=== PATIENT | female | born 1990 | race Caucasian/White ===

== ENCOUNTER 2017-01-03 19:48 | Emergency (ER) | payer MEDICAID ==
[2017-01-03 19:56] VITALS: BP 130/85
== END 2017-01-03 20:25 | disposition home or self-care (01) ==
LOC: ED 19:48
DX: O23.41 Unspecified infection of urinary tract in pregnancy, first trimester (principal); Z3A.01 Less than 8 weeks gestation of pregnancy

== ENCOUNTER 2017-03-01 17:20 | Emergency (ER) | payer MEDICAID ==
[~2017-03-01] VITALS: Ht 167.6 cm; Wt 95.3 kg
[2017-03-01 19:14] VITALS: BP 146/87
== END 2017-03-01 19:14 | disposition home or self-care (01) ==
LOC: ED 17:20
DX: O26.891 Other specified pregnancy related conditions, first trimester (principal); M72.2 Plantar fascial fibromatosis; O23.41 Unspecified infection of urinary tract in pregnancy, first trimester; Z79.899 Other long term (current) drug therapy; Z3A.13 13 weeks gestation of pregnancy